=== PATIENT | male | born 1945 | race Caucasian/White ===

== ENCOUNTER 2018-07-24 10:25 | Emergency (ER) | payer MEDICARE, OTHER ==
[2018-07-24] MEDS ORDERED: ACETAMINOPHEN 325 MG TAB PO ONE (10:47)
--- NOTE | 2018-07-24 10:50 | Emergency Department Record ---
History of Present Illness - General Chief Complaint: Fall Injury Stated Complaint: FALL Time Seen by Provider: 07/24/18 10:40 Source: Patient Mode of Arrival: Ambulatory Limitations: No limitations - History of Present Illness Initial Comments: The patient is here due to a slip and fall about 2 hours ago. He slipped on the ice and fell backwards hitting the back of the head and his lumbar area on the ground. He may have been knocked out for a few seconds and since has had a TRIVEDI, mild nausea and did vomit once. Additionally he is having low back pain but no leg numbness, weakness, or difficulty walking. The patient denies being on any blood thinner meds or any neck pain. MD Complaint: Fall Onset/Timin -: Hour(s) When Fall Occurred: 1-3 hours [employer] Fall Witnessed: Yes, by bystander Place Fall Occurred: Work Loss of Consciousness: Yes, Second(s) Location: Head, Buttocks Severity scale (1-10): 8 - Martin Coma Scale Eye Response: (4) Open spontaneously Motor Response: (6) Obeys commands - Related Data Home Medications Medication Instructions Recorded Confirmed Last Taken Carvedilol 1 tab PO DAILY 07/24/18 07/24/18 07/24/18 Methadone HCl 10 mg PO QID 07/24/18 07/24/18 Unknown Allergies Allergy/AdvReac Type Severity Reaction Status Date / Time No Known Allergies Allergy Unverified 02/13/18 11:58 Travel Screening - Travel/Exposure Within Last 30 Days Have you traveled within the last 30 days?: No - Travel/Exposure Within Last Year Have you traveled outside the [place] in the last year?: Yes Location Detail:: [place] - Additonal Travel Details Have you been exposed to anyone with a communicable illness?: No - Travel Symptoms Symptom Screening: None Review of Systems Constitutional: Denies: Chills, Fever Eyes: Denies: Eye discharge ENT: Denies: Congestion Respiratory: Denies: Cough, Dyspnea Past Medical History - SOCIAL HISTORY Smoking Status: Former smoker Alcohol Use: None Drug Use: None - RESPIRATORY Hx Respiratory Disorders: No - CARDIOVASCULAR Hx Cardio Disorders: Yes Hx Cardiac Cath: Yes Hx Hypertension: Yes Hx Irregular Heartbeat: Yes - NEURO Hx Neuro Disorders: No - GI Hx GI Disorders: Yes Hx of Polyps: Yes - Hx Genitourinary Disorders: No - ENDOCRINE Hx Endocrine Disorders: Yes Hx Diabetes: Yes Hx Thyroid Disease: No - MUSCULOSKELETAL Hx Musculoskeletal Disorders: No - PSYCH Hx Psych Problems: No - HEMATOLOGY/ONCOLOGY Hx Hematology/Oncology Disorders: No Family Medical History Any Significant Family History?: No Physical Exam - General General Appearance: Alert, Oriented x3, Cooperative, No acute distress - Head Head exam: Atraumatic, Normocephalic, Normal inspection - Eye Eye exam: Normal appearance, PERRL - ENT Throat exam: Normal inspection. negative: Tonsillar erythema, Tonsillar exudate - Neck Neck exam: Normal inspection, Full ROM. negative: Tenderness (There is no posterior Cspine tenderness.) - Respiratory Respiratory exam: Normal lung sounds bilaterally. negative: Respiratory distress - Cardiovascular Cardiovascular Exam: Regular rate, Normal rhythm, Normal heart sounds - GI/Abdominal GI/Abdominal exam: Soft, Normal bowel sounds. negative: Tenderness - Extremities Extremities exam: Normal inspection, Full ROM, Normal capillary refill. negative: Tenderness - Back Back exam: Reports: Normal inspection, Vertebral tenderness (mild L3-5.) - Neurological Neurological exam: Alert, Normal gait, Oriented X3, Reflexes normal. negative: Abnormal gait, Altered, Motor sensory deficit Course Vital Signs 07/24/18 10:31 Temperature 97.5 F L Pulse Rate 70 Respiratory 18 Rate Blood Pressure 143/78 Pulse Ox 99 - Reevaluation(s) Reevaluation #1: I did discuss the xray results with the patient and the obvious constipation present. He is to take Tylenol for pain and use an OTC laxative as needed. He is to take the next 2 days off work and see an occupational health provider on Sunday. 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 Constipation.) Disposition Disposition: Discharge Clinical Impression: Head injury due to trauma Qualifiers: Encounter type: initial encounter Qualified Code(s): S09.90XA - Unspecified injury of head, initial encounter Disposition: Home, Self-Care Condition: (2) Stable Instructions: Head Injury (ED), Low Back Strain (ED) Additional Instructions: Please continue your regular medicines and add Tylenol as needed for pain and headache. Please take the next 2 days off work and rest and see an occupation health provider on Sunday for recheck. Return to the ER for any worsening TRIVEDI, nausea, vomiting, or confusion. Forms: Patient Portal Access Time of Disposition: 11:58 Quality - Quality Measures Quality Measures: N/A, Blunt Head Trauma (>2yr) - Blunt Head Trauma - Adult Quality Measure: Measure #415: Utilization of CT for Minor Blunt Head Trauma ICD10 Codes Entered: Yes View Details: Yes Was CT ordered: Yes Does Patient Have Any of the Following: Taking Antiplatelet Med Patient Presented Within 24 Hours of Injury: Yes Martin Score: Please complete Martin Coma Scale above Utilization of CT for Minor Blunt Head Trauma: Patient Excluded [[id number]] - Blood Pressure Screening View Details: Yes Does Patient Have Any of the Following: No Blood Pressure Classification: Pre-Hypertensive BP Reading Systolic Measurement: 132 Diastolic Measurement: 75 Screening for High Blood Pressure: < Pre-Hypertensive BP, F/U Documented > [ [id number]] Pre-Hypertensive Follow-up Interventions: Referral to alternative/primary care provider.
--- NOTE | 2018-07-25 12:22 | CT SCAN REPORT ---
EXAM: NONCONTRAST CT OF THE HEAD HISTORY: FALL WITH DIZZINESS AND VOMITING. TECHNIQUE: Noncontrast CT of the head was obtained. Comparison: None. FINDINGS: No midline shift, mass effect, or abnormal intra or extraaxial fluid collection. No cerebral edema, focal mass or intracranial hemorrhage detected. The ventricle sizes are within normal limits. The basal cisterns do not appear effaced. No evidence of a displaced calvarial fracture. Partial calcification of the left sphenoid sinus, otherwise no significant paranasal sinus opacification. IMPRESSION: 1. NO ACUTE INTRACRANIAL FINDINGS. 2. PARTIAL OPACIFICATION OF THE LEFT SPHENOID SINUS. JOB NUMBER: [id number] [facility]
--- NOTE | 2018-07-25 12:26 | RADIOLOGY REPORT ---
EXAM: LUMBAR SPINE HISTORY: LOWER BACK PAIN. TECHNIQUE: Three views of the lumbar spine were obtained. Comparison: None. FINDINGS: No definite vertebral body height loss allowing for obliquity on lateral views. Diffuse anterior end plate osteophytes. Bulky lower facet joint arthropathy. Suggestion of disk space height loss at L5-S1. Large volume of stool throughout the visualized colon and rectum. IMPRESSION: 1. MULTILEVEL LUMBAR SPINE DEGENERATIVE FINDINGS WITH AREA OF LOWER LUMBAR DISK SPACE HEIGHT LOSS AND PROMINENT FACET ARTHROPATHY. 2. INCIDENTALLY NOTED IS LARGE VOLUME OF STOOL WITHIN THE VISUALIZED COLON AND RECTUM. JOB NUMBER: [id number] [facility]
== END 2018-07-24 12:07 | disposition home or self-care (01) ==
LOC: ER 10:25
DX: S09.90XA Unspecified injury of head, initial encounter (principal); M54.5 Low back pain; R51 Headache; R11.2 Nausea with vomiting, unspecified; I10 Essential (primary) hypertension; Z87.891 Personal history of nicotine dependence; W00.0XXA Fall on same level due to ice and snow, initial encounter; Y92.481 Parking lot as the place of occurrence of the external cause; Y99.0 Civilian activity done for income or pay
CPT/HCPCS: 70450; 72100; 99283; 99284